=== PATIENT | female | born 1945 | race Caucasian/White ===

== ENCOUNTER 2019-08-16 12:01 | Inpatient (IN) | payer MEDICARE, MEDICAID, SELFPAY ==
[2019-08-16] VITALS (13 sets, daily range): BP systolic 77–141; BP diastolic 39–89; PULSE 106–145; RESP 20–30; TEMP 35.2–36.5; O2SAT 95–100
--- NOTE | ~2019-08-16 | XR_ITS ---
XR chest 1V portable DATE: 08/16/2019 13:05 INDICATION: Cough TECHNIQUE: Portable AP chest on 08/16/2019 at 1307 hours COMPARISON: None FINDINGS: Postoperative changes noted from cervical posterior fusion. Diffuse osteopenia. There is de xtroscoliosis and degenerative spurring of the thoracic spine. No pulmonary infiltrate or consolidation, pleural effusion or pulmonary vascular congestion or pneumo thorax is evident. IMPRESSION: No active pulmonary disease Reviewed, dictated and finalized at location A. IMPRESSION: No active pulmonary disease
--- NOTE | ~2019-08-16 | CT_ITS ---
EXAMINATION: CT abdomen pelvis wo con DATE: 08/16/2019 14:25 INDICATION: Abdominal pain. Nausea and vomiting. TECHNIQUE: Computed tomography (CT) of the abdomen and pelvis was performed without intravenous contr ast. Automated exposure control and iterative reconstruction technique were employed. Exam dose: 938 .82 mGy-cm total exam DLP. COMPARISON: None. FINDINGS: There is dependent atelectasis in both lower lobes. Cardiomegaly. Prominent coronary artery calcifications. There are calcified splenic granulomas. No apparent hepatic or splenic, pancreatic, and adrenal or re nal space-occupying mass lesion is evident on this limited noncontrast examination with motion. The g allbladder is present. No bile duct or pancreatic duct dilatation. There are some calcifications of l eft kidney which may be arterial. No ureteral calculus or hydroureteronephrosis. There is extensive calcification of the abdominal aorta and iliac arteries but no evidence of aneurys m. No intraperitoneal or retroperitoneal or pelvic mass lesion or adenopathy or ascites. There is a fairly prominent amount of fecal material and gas in the rectum and colon. No bowel obstru ction is evident. There is diffuse moderate thickening of the urinary bladder wall. No pericystic fat stranding is note d. Status post hysterectomy. Multiple surgical clips are noted in the aortocaval and. Aortic area distally, extending into the pro ximal iliac region. Status post mesh ventral abdominal wall hernia repair with some bulging right of midline. Nonspecific stranding in the subcutaneous adipose tissues of the ventral abdominal wall, right greater than left . Diffuse osteopenia. IMPRESSION: Cardiomegaly, prominent coronary artery calcified atherosclerosis Prominent amount of fecal material and gas in the rectum and colon Nonspecific thickening of the urinary bladder wall; recommend correlation with urinalysis for possibl e cystitis Reviewed, dictated and finalized at Location [facility]. Reviewed, dictated and finalized at location A. IMPRESSION: Cardiomegaly, prominent coronary artery calcified atherosclerosis Prominent amount of fecal material and gas in the rectum and colon Nonspecific thickening of the urinary bladder wall; recommend correlation with urinalysis for possible cystitis
--- NOTE | 2019-08-16 12:11 | ECG_ITS ---
Measurements Intervals [place] Rate: 125 P: [place]: 0 QRS: 34 QRSD: 88 T: 142 QT: 334 QTc: 483 Interpretive Statements ATRIAL FIBRILLATION WITH RAPID VENTRICULAR RESPONSE VENTRICULAR PREMATURE COMPLEX BORDERLINE ST-T WAVE ABNORMALITY- DIFFUSE LEADS BASELINE ARTIFACT- V6 ABNORMAL ECG Electronically Signed On 08-16-2019 16:34:42 CDT by Eliu Lockhart D.O.
--- NOTE | 2019-08-16 12:15 | ED.GENADULT ---
HPI - General Adult General Chief complaint: Dizziness Stated complaint: n/v/dizziness Time Seen by Provider: 08/16/19 12:08 Source: RN notes reviewed History of Present Illness HPI narrative: Patient presents emergency department from [facility] for nausea and vomiting. Patient has a history of previous stroke and is a phasic but is able to nod yes or no for questions. Per the [facility] staff patient began to have nausea vomiting yesterday. Patient complaining of dizziness as well as diffuse abdominal pain. No fevers or chills per the penitentiary. Patient denies any chest pain or shortness of breath Related Data Allergies Allergy/AdvReac Type Severity Reaction Status Date / Time No Known Allergies Allergy Verified 08/16/19 12:20 Review of Systems Review of Systems: Narrative: Gen.: Denies fevers or chills ENT: Denies congestion Respiratory: Denies shortness of breath or cough CV: Denies chest pain or palpitations GI: See HPI a denies burning, urgency, frequency or hematuria Musculoskeletal: Denies back pain or muscle pain Neuro: Denies headache, reports dizziness Skin: Denies rash Except as documented, all other systems reviewed and negative [facility] Past Medical History Medical History (Updated 08/16/19 @ 17:12 by Diego Aden DO) CVA (cerebral vascular accident) Social History Social History (Updated 08/16/19 @ 12:15 by Diego Aden DO) Smoking status: Never smoker Gender identity (if verbalized by the patient): Female Exam Narrative: Exam Narrative: APPEARANCE: No acute distress, nontoxic, resting in bed EYES: EOMI HEENT: Normocephalic, atraumatic, oromucosa dry RESPIRATORY: No respiratory distress Clear to auscultation bilaterally with no rhonchi wheezing or rales. CARDIOVASCULAR: Tachycardic and irregular without murmurs rubs or gallops. ABDOMINAL: Soft, nondistended, diffusely tender to palpation, no rebound or guarding Rectal: Moderate amount of reddish-brown stool that is Hemoccult positive MUSCULOSKELETAl: Moves all extremities. No clubbing, cyanosis or edema. NEURO: Awake and alert. Following commands, a phasic nods yes or no to answer questions SKIN:: Warm, dry. No rashes lesions or abrasions PSYCHIATRIC: Normal affect/mood, Course Course Emergency Course: Reviewed patient's records the patient is a DNR comfort measures only. Reviewed contact individuals. Discussed with the patient's power of spent grain dryer Padma Edward who resides in [place]. Discussed the patient's current work-up and grave status. Discussed the patient's blood pressures GI bleed. At this time she request continue DNR. We discussed central line placement and she states the patient will want no aggressive treatment outside of peripheral IV understands that this could lead to but requests no central line or pressors at this time. States the patient's other sister will be coming to the ER Patient's daughter Armando down the emergency department. Again had conversation with daughter who is present as well as the patient who does comprehend and able to nod up and down the grave situation of the patient's current illness discussed treatment options including central line placement and pressors at this time the patient does not wish to have any further escalation outside of IV fluids and antibiotics her and family do understand high risk of without more aggressive treatment. I did discuss with the patient and family whether the patient want a blood transfusion as this can be given through a peripheral IV the family and patient are in agreement with this. We did discuss the possibility of hospice but the patient would like to proceed with antibiotics and fluids at this time as well as family but again with no further escalation Patient continues to have A. fib with RVR she is on metoprolol at home. At this time I will try a dose of Lopressor 5 mg as the patient has been unable to keep down her medications and question
[2019-08-16] MEDS: SODIUM CHLORIDE 0.9% IV 1,000 ML 999 ML IV CONT ×2 (12:16→12:17)
[2019-08-16 13:27] LABS: Basophils Absolute Auto 0.1 K/mm3 (0.0-0.1); Basophils Percent Auto 0.2 % (0.2-1.2); Hematocrit 24.2 % (37.0-47.0); Hemoglobin 7.6 g/dL (12.0-15.0); Immature Granulocyte Absolute 0.38 K/mm3 (0.00-0.031); Immature Granulocyte Percent A 1.2 % (0-0.5); Lymphocytes Absolute Auto 1.58 K/mm3 (0.9-3.2); Lymphocytes Percent Auto 5.1 % (18.3-44.2); Mean Corpuscular HGB Conc 31.4 g/dl (32-36); Mean Corpuscular Hemoglobin 31.9 pg (26-34); Mean Corpuscular Volume 101.7 fl (80-100); Mean Platelet Volume 11.2 fl (7.4-10.4); Monocytes Absolute Auto 1.5 K/mm3 (0.1-0.6); Monocytes Percent Auto 4.9 % (2.6-8.5); Neutrophils Absolute Auto 27.7 K/mm3 (1.3-6.7); Neutrophils Percent Auto 88.6 % (45.5-73.1); Nucleated Red Blood Cells Absolute Auto 0.3 K/mm3 (0.0-0.012); Nucleated Red Blood Cells Perc 0.9 % (0.0-0.2); Platelet Count Result 376 k/mm3 (150-375); Red Blood Count 2.38 M/mm3 (4.2-5.4); Red Cell Distribution Width 14.2 % (11.5-14.5); White Blood Count 31.3 K/mm3 (4.5-10.0)
[2019-08-16 13:32] LABS: Add Urine Microscopic? YES; Appearance Urine Turbid (Clear); Bacteria Urine 4+ /hpf; Bilirubin Urine 1+ (Negative); Blood Urine 2+ (Negative); Color Urine Amber (Yellow); Glucose Urine UA Negative (Negative); Hyaline Casts Urine 30-49 /lpf; Ketones Urine Negative (Negative); Leukocyte Esterase Ur 3+ LEU/UL (Negative); Mucus Urine Rare /lpf; Nitrate Urine Negative (Negative); Protein Urine 1+ mg/dL (Negative); Specific Grav Ur 1.018 (1.001-1.035); Squamous Epithelial Cell Urine Occasional /hpf (Few); WBC Clumps Urine Present /HPF; WBC Urine >75 /hpf
[2019-08-16 13:38] LABS: INR 3.1; Partial Thromboplastin Time 33.8 SECONDS (22.3-36.8); Prothrombin Time 31.4 Seconds (11.1-14.7)
[2019-08-16 13:52] LABS: Alanine Aminotransferase 22 U/L (4-35); Alkaline Phosphatase 41 U/L (38-126); Aspartate Amino Transferase 54 U/L (14-36); Bilirubin,Total 0.4 mg/dL (0.2-1.3); Blood Urea Nitrogen 75 mg/dL (7-17); Calcium 8.1 mg/dL (8.4-10.2); Carbon Dioxide 11 mmol/L (22-30); Chloride 104 mmol/L (98-107); Estimated Glomerular Filt Rate 26; Glucose 143 mg/dL (65-105); Lipase 270 U/L (23-300); Potassium 4.1 mmol/L (3.4-5.0); Sodium 140 mmol/L (137-145)
[2019-08-16 13:54] LABS: Troponin I 0.084 ng/mL (0.000-0.034)
[2019-08-16 14:02] LABS: Lactic Acid Reflex 13.4 mmol/L (0.7-2.1)
[2019-08-16] MEDS: SODIUM CHLORIDE 0.9% IV 500 ML 999 ML IV CONT ×2 (14:12→15:36)
[2019-08-16] MEDS: METOPROLOL TARTRATE INJ 5 MG/5 ML VIAL IV PUSH (15:13)
[2019-08-16 16:25] LABS: Reflex Lactic Acid Yes or No Add Lactic
--- NOTE | 2019-08-16 17:37 | PC.NURSE ---
While in room with pt and daughter, Pts O2 started to drop to the 70's. This RN went to put pt on O2 and pt shook head NO.
--- NOTE | 2019-08-16 17:39 | ADMGEN ---
This patient, Kyra Bedoya, was admitted to Intensive Care Unit-1 @ 1726 08/16/19. Patient oriented to hospital policies and general routines including ID bracelet, bed and alarms, visiting hours, pain management, procedures, bathroom and other care routines, personal items, smoking policy, room service/diet, and visiting hours. Valuables list has been completed. Information on how to activate the Rapid Response Team has been discussed. Patient/Family are encouraged to report perceived risks to care and to ask questions if they do not understand what they are told or what they should do.
[2019-08-16] MEDS: SODIUM CHLORIDE 0.9% IV 1,000 ML 125 ML IV CONT (17:54)
[2019-08-16 18:51] LABS: Troponin I 0.108 ng/mL (0.000-0.034)
--- NOTE | 2019-08-16 20:12 | PM.IMHP ---
H&P: HPI History of Present Illness Chief complaint: severe sepsis,uti,gi bleeding, a fib with rvr,stacia Narrative: Kyra Bedoya is a 74 year old female who comes from [facility]. Nausea and vomiting. She has had a previous stroke and is aphasic. The patient came to the emergency room from the half-way due to nausea and vomiting. She was complaining of dizziness and abdominal pain. No fever chills. She was having some diarrhea when I was in the room with her. Her history was obtained from her records from the half-way and also I was able to communicate somewhat with asking her questions and her nodding yes or no. She is being checked for COVID since she comes from a half-way that had an outbreak. The patient's heart rate was found to be in the 140s. She has a history of atrial fibrillation and is on Eliquis. She was noted to be AFib RVR. Hemoglobin was noted to be 7.6 and she was ordered for a unit of blood. The patient has a power of workers compensation defense attorney who is Padma velez who resides in [place]. ER physician did notify the power workers compensation defense attorney who stated that the patient wants no aggressive treatment outside of the IV fluids and no central line are vasopressors. There was a relative that came to the emergency room Kailey briceno who was given all of the options. The family is agreeable to blood transfusions in IV fluids. They would like to proceed with antibiotics. As the patient was found to have a UTI. The patient is alert. However her blood pressure drops on the 80/60 at times. She was given IV fluids and then a unit of blood. The blood pressure has improved some. Her her home medications include metoprolol., IV fluids, and metoprolol IV. She was given IV bolus in the emergency room. Her UA was positive for UTI. CT of the abdomen and pelvis was read as cardiomegaly, prominent coronary artery calcification arthrosclerosis. Prominent amount of fecal material gas in the rectum and colon. Nonspecific thickening of the urinary bladder wall recommend correlation with urinalysis for possible cystitis. Date of service 08/16/2019 was noted to be 13.4. Review of Systems Review of Systems: All systems reviewed & are unremarkable except as noted in HPI and below Constitutional: Constitutional: Reports as per HPI and Reports no additional constitutional complaints Eyes: Eyes: Reports as per HPI and Reports no additional eye complaints ENT: Reports system reviewed and no additional complaints, except as documented and Reports Normal hearing present Cardiovascular: Cardiovascular: Reports no additional cardiovascular complaints Respiratory: Respiratory: Reports no additional respiratory complaints and Reports no additional respiratory complaints Gastrointestinal: Gastrointestinal: Reports as per HPI and Reports no additional gastrointestinal complaints Musculoskeletal: Musculoskeletal: Reports no additional musculoskeletal complaints Integumentary/Breasts: Skin/Breast: Reports system reviewed and no additional complaints, except as docu and Reports as per HPI Neurologic: Reports system reviewed and no additional complaints, except as documented, Reports as per HPI and Reports Normal hearing present Psychiatric: Psychiatric: Reports no additional psychiatric complaints and Reports as per HPI Endocrine: Endocrine: Reports no additional endocrine complaints Hematologic/Lymphatic: Hematologic/Lymphatic: Reports no additional hematologic/lymphatic complaints Allergic/Immunologic: Allergic/Immunologic: Reports no additional allergic/immunologic complaints [facility] Past Medical History Medical History (Updated 08/16/19 @ 20:24 by Bailee Macias NP) CAD (coronary artery disease) CVA (cerebral vascular accident) History of this leaving her aphasic Hyperlipidemia Hypertension Neoplasm of ovary Peripheral neuropathy Surgical History Surgical History (Updated 08/16/19 @ 20:24 by Bailee Macias NP) Surgical history unkno
[2019-08-16] MEDS: DIGOXIN INJ 250 MCG/ML 2 ML AMP (*BKC) IV PUSH (20:36)
[2019-08-16 21:45] LABS: Basophils Absolute Auto 0.1 K/mm3 (0.0-0.1); Basophils Percent Auto 0.3 % (0.2-1.2); Hematocrit 26.9 % (37.0-47.0); Hemoglobin 9.2 g/dL (12.0-15.0); Immature Granulocyte Absolute 0.15 K/mm3 (0.00-0.031); Immature Granulocyte Percent A 0.5 % (0-0.5); Lymphocytes Absolute Auto 1.87 K/mm3 (0.9-3.2); Lymphocytes Percent Auto 6.3 % (18.3-44.2); Mean Corpuscular HGB Conc 34.2 g/dl (32-36); Mean Corpuscular Hemoglobin 31.2 pg (26-34); Mean Corpuscular Volume 91.2 fl (80-100); Monocytes Absolute Auto 1.5 K/mm3 (0.1-0.6); Monocytes Percent Auto 5.1 % (2.6-8.5); Neutrophils Absolute Auto 25.9 K/mm3 (1.3-6.7); Neutrophils Percent Auto 87.8 % (45.5-73.1); Nucleated Red Blood Cells Absolute Auto 0.2 K/mm3 (0.0-0.012); Nucleated Red Blood Cells Perc 0.6 % (0.0-0.2); Platelet Count Result 305 k/mm3 (150-375); Red Blood Count 2.95 M/mm3 (4.2-5.4); Red Cell Distribution Width 15.8 % (11.5-14.5); White Blood Count 29.5 K/mm3 (4.5-10.0)
[2019-08-16 22:18] LABS: IFOB Positive Control Positive; Immunochemical Fecal Occult Bl Positive (N)
[2019-08-16 22:24] LABS: Lactic Acid 4.9 mmol/L (0.7-2.1)
--- NOTE | 2019-08-16 22:47 | PC.NURSE ---
Pt's POA, Emma Edward ([phone]) called for pt update. Emma states she is like a niece to the pt but is a cousin thing. Emma states that Kyra does not want any extraordinary measures taken to preserve her life. States that if lab work is necessary to treat an infection, then that is okay to do, but if it's being done for surgery or to preserve her life, then don't do it. Pt nodded and Emma agreed that pt does not want GI or cardiac consults. Emma states she wants to be comfortable. Emma states she is in [place] but can be reached at anytime for questions.
--- NOTE | 2019-08-16 23:05 | PC.NURSE ---
Notified Bailee Macias NP of conversation with Emma (POA). Troponin canceled since pt and POA do not want treatment for findings. Also informed Bailee that neither pt nor POA want GI consult for treatment of positive occult blood in stool.
[2019-08-17] VITALS (11 sets, daily range): BP systolic 86–110; BP diastolic 24–57; PULSE 84–113; RESP 16–21; TEMP 36–37.3; O2SAT 96–99
[2019-08-17] MEDS: SODIUM CHLORIDE 0.9% IV 1,000 ML 125 ML IV CONT ×3 (00:16→17:50)
--- NOTE | 2019-08-17 04:10 | PC.NURSE ---
Pt refused am labs.
[2019-08-17] MEDS: DIGOXIN INJ 250 MCG/ML 2 ML AMP (*BKC) 125 MCG IV PUSH (08:47)
--- NOTE | 2019-08-17 13:01 | PC.NURSE ---
This patient, Kyra Bedoya, was transferred to [[facility] 3m/s ] on 08/17/19 at 1200. Personal belongings sent with patient. Belongings list checked and signed with receiving [3m/s narayan]. Report given to [ Lul NOYOLA ]. Appropriate documentation sent with patient.
--- NOTE | 2019-08-17 15:30 | PM.IMPN ---
Progress Note: A&P Assessment and Plan (1) Septic shock: Code(s): A41.9 - Sepsis, unspecified organism; R65.21 - Severe sepsis with septic shock Status: Acute Assessment and Plan: The patient is having low blood pressures in AFib with RVR which is NSR now. Patient was started on Rocephin for UTI. Uc is positive. (2) Acute UTI: Code(s): N39.0 - Urinary tract infection, site not specified Status: Acute Assessment and Plan: Patient was started on Rocephin. uc is positive. (3) Hypertension: Code(s): I10 - Essential (primary) hypertension Status: Chronic Assessment and Plan: Restart oral medications (4) Hyperlipidemia: Code(s): E78.5 - Hyperlipidemia, unspecified Status: Chronic Assessment and Plan: Restart fenofibrate and atorvastatin at this time. (5) Peripheral neuropathy: Code(s): G62.9 - Polyneuropathy, unspecified Status: Chronic Assessment and Plan: This time so she has not had any of her gabapentin. (6) Elevated troponin: Code(s): R79.89 - Other specified abnormal findings of blood chemistry Status: Acute Assessment and Plan: Could be related to the sepsis. minimal elevation (7) Anemia: Code(s): D64.9 - Anemia, unspecified Status: Acute Assessment and Plan: sp one unit blood, fobt is positive (8) Acute GI bleeding: Code(s): K92.2 - Gastrointestinal hemorrhage, unspecified Status: Acute Assessment and Plan: Do not want GI involved at this time. (9) CVA (cerebral vascular accident): Code(s): I63.9 - Cerebral infarction, unspecified Status: Acute Assessment and Plan: The patient has expressive aphasia. (10) Acute renal insufficiency: Code(s): N28.9 - Disorder of kidney and ureter, unspecified Status: Acute Assessment and Plan: Patient had a history of nausea vomiting, hydrated will can advance diet . (11) Atrial fibrillation with rapid ventricular response: Code(s): I48.91 - Unspecified atrial fibrillation Status: Acute Assessment and Plan: Patient was given a dose of metoprolol IV push which then dropped her blood pressure. I gave her a dose of digoxin, pt is back on her Eliquis and ASA. (12) CAD (coronary artery disease): Code(s): I25.10 - Atherosclerotic heart disease of [place] coronary artery without angina pectoris Status: Chronic Assessment and Plan: Patient was on aspirin and Eliquis continue to hold due to fobt positive stool Subjective Date/time seen: 08/17/19 15:30 Interval history: 74 year old female who comes from [facility]. Nausea and vomiting. She has had a previous stroke and is aphasic. The patient [facility] due to [facility] and vomiting. nausea and vomiting have settled, no complaints, awaiting covid test, pt is very sleepy today, hold conversation when awoken Review of Systems Review of Systems: ROS unobtainable: Yes unobtainable due to mental status Exam Const: General: cooperative, comfortable, no acute distress, well developed, alert, awake and Physically active Nutritional Appearance: average body habitus and well nourished Orientation/consciousness: oriented to person Limitations: no limitations Resp: Effort & Inspection: normal respiratory effort Auscultation: clear to auscultation bilaterally Percussion: percussion normal Cardio: Palpation: normal PMI Rate: tachycardic Rhythm: abnormal rhythm Heart sounds: S1 normal heart sound present and S2 normal heart sound present Peripheral pulses: Peripheral pulses 2+ throughout Extrem: General: normal to inspection Right upper extremity: normal to inspection and shoulder/upper arm Left upper extremity: normal to inspection and shoulder/upper arm Right lower extremity: normal to inspection Left lower extremity: normal to inspection Objective
[2019-08-17 17:23] LABS: Basophils Absolute Auto 0.1 K/mm3 (0.0-0.1); Basophils Percent Auto 0.3 % (0.2-1.2); Hematocrit 23.6 % (37.0-47.0); Hemoglobin 7.8 g/dL (12.0-15.0); Immature Granulocyte Percent A 0.5 % (0-0.5); Lymphocytes Absolute Auto 1.45 K/mm3 (0.9-3.2); Lymphocytes Percent Auto 7.4 % (18.3-44.2); Mean Corpuscular HGB Conc 33.1 g/dl (32-36); Mean Corpuscular Hemoglobin 30.6 pg (26-34); Mean Corpuscular Volume 92.5 fl (80-100); Mean Platelet Volume 10.9 fl (7.4-10.4); Monocytes Absolute Auto 1.6 K/mm3 (0.1-0.6); Monocytes Percent Auto 7.9 % (2.6-8.5); Neutrophils Absolute Auto 16.5 K/mm3 (1.3-6.7); Neutrophils Percent Auto 83.9 % (45.5-73.1); Nucleated Red Blood Cells Absolute Auto 0.2 K/mm3 (0.0-0.012); Nucleated Red Blood Cells Perc 0.9 % (0.0-0.2); Platelet Count Result 226 k/mm3 (150-375); Red Blood Count 2.55 M/mm3 (4.2-5.4); Red Cell Distribution Width 17.4 % (11.5-14.5); White Blood Count 19.7 K/mm3 (4.5-10.0)
[2019-08-17 17:34] LABS: Alanine Aminotransferase 19 U/L (4-35); Albumin Level 2.4 g/dL (3.5-5.1); Alkaline Phosphatase 36 U/L (38-126); Aspartate Amino Transferase 50 U/L (14-36); Bilirubin,Total 0.5 mg/dL (0.2-1.3); Blood Urea Nitrogen 77 mg/dL (7-17); Calcium 7.1 mg/dL (8.4-10.2); Carbon Dioxide 27 mmol/L (22-30); Chloride 114 mmol/L (98-107); Estimated Glomerular Filt Rate 44; Glucose 164 mg/dL (65-105); Potassium 3.3 mmol/L (3.4-5.0); Sodium 143 mmol/L (137-145)
[2019-08-17] MEDS: ATORVASTATIN 10 MG TABLET PO (21:20)
[2019-08-17] MEDS: APIXABAN 5 MG TABLET PO (21:20)
[2019-08-17 23:20] LABS: Hematocrit 23.7 % (37.0-47.0); Hemoglobin 7.7 g/dL (12.0-15.0)
[2019-08-18] VITALS (7 sets, daily range): BP systolic 111–130; BP diastolic 43–51; PULSE 69–89; RESP 16–20; TEMP 36.2–36.9; O2SAT 97–100
[2019-08-18] MEDS: SODIUM CHLORIDE 0.9% IV 1,000 ML 125 ML IV CONT ×3 (01:58→20:47)
[2019-08-18] MEDS: GABAPENTIN 100 MG CAPSULE 200 MG PO ×2 (12:44→17:50)
[2019-08-18] MEDS: POTASSIUM CHLORIDE 20 MEQ TABLET.ER PO (12:44)
[2019-08-18] MEDS: METOPROLOL TARTRATE 50 MG TAB 100 MG PO ×2 (12:44→20:54)
[2019-08-18] MEDS: MULTIVITAMINS THERAPEUTIC TAB (*BKC) 1 TABLET PO (12:44)
[2019-08-18] MEDS: ASPIRIN 81 MG ENTERIC TABLET PO (12:44)
[2019-08-18] MEDS: CHOLECALCIFEROL 1,000 UNIT TABLET 1000 UNITS PO (12:44)
[2019-08-18] MEDS: APIXABAN 5 MG TABLET PO (12:44)
[2019-08-18] MEDS: FENOFIBRATE NANOCRYSTALLIZED 145 MG TABLET PO (12:44)
[2019-08-18] MEDS: FUROSEMIDE 40 MG TABLET PO ×2 (12:44→17:51)
[2019-08-18 16:10] LABS: SARS-CoV-2 RNA PCR Negative
--- NOTE | 2019-08-18 17:36 | PM.IMPN ---
Progress Note: A&P Assessment and Plan (1) Septic shock: Code(s): A41.9 - Sepsis, unspecified organism; R65.21 - Severe sepsis with septic shock Status: Acute Assessment and Plan: The patient is having low blood pressures in AFib with RVR which is NSR now. Patient was started on Rocephin for UTI. Uc is positive. pt can have purred diet, pt can come out of isolation if covid is negative (2) Acute UTI: Code(s): N39.0 - Urinary tract infection, site not specified Status: Acute Assessment and Plan: Patient was started on Rocephin. uc is positive. (3) Hypertension: Code(s): I10 - Essential (primary) hypertension Status: Chronic Assessment and Plan: Restart oral medications (4) Hyperlipidemia: Code(s): E78.5 - Hyperlipidemia, unspecified Status: Chronic Assessment and Plan: Restart fenofibrate and atorvastatin at this time. (5) Peripheral neuropathy: Code(s): G62.9 - Polyneuropathy, unspecified Status: Chronic Assessment and Plan: This time so she has not had any of her gabapentin. (6) Elevated troponin: Code(s): R79.89 - Other specified abnormal findings of blood chemistry Status: Acute Assessment and Plan: Could be related to the sepsis. minimal elevation (7) Anemia: Code(s): D64.9 - Anemia, unspecified Status: Acute Assessment and Plan: sp one unit blood, fobt is positive (8) Acute GI bleeding: Code(s): K92.2 - Gastrointestinal hemorrhage, unspecified Status: Acute Assessment and Plan: Do not want GI involved at this time. (9) CVA (cerebral vascular accident): Code(s): I63.9 - Cerebral infarction, unspecified Status: Acute Assessment and Plan: The patient has expressive aphasia. (10) Acute renal insufficiency: Code(s): N28.9 - Disorder of kidney and ureter, unspecified Status: Acute Assessment and Plan: Patient had a history of nausea vomiting, hydrated will can advance diet . (11) Atrial fibrillation with rapid ventricular response: Code(s): I48.91 - Unspecified atrial fibrillation Status: Acute Assessment and Plan: Patient was given a dose of metoprolol IV push which then dropped her blood pressure. I gave her a dose of digoxin, hold asa and eliquis for now FOBT is positive (12) CAD (coronary artery disease): Code(s): I25.10 - Atherosclerotic heart disease of [place] coronary artery without angina pectoris Status: Chronic Assessment and Plan: Patient was on aspirin and Eliquis continue to hold due to fobt positive stool Subjective Date/time seen: 08/18/19 17:36 Interval history: 74 year old female who comes from [facility]. Nausea and vomiting. She has had a previous stroke and is aphasic. The patient came to the emergency room from the custodial due to nausea and vomiting. nausea and vomiting have settled, no complaints, awaiting covid test, pt is a pleasant lady. Likely here for UTI Review of Systems Review of Systems: All systems reviewed & are unremarkable except as noted in HPI and below Exam Const: General: alert and other (elderly pleasant lady ) Nutritional Appearance: average body habitus Psych: Appearance: grossly normal Mental Status: mental status grossly normal Speech and movement: Normal speech and movement present Affect: normal affect Attitude: cooperative Thought process: Normal thought process present Insight: Fair insight present (Psych) Judgement: Fair judgement present (Psych) Objective Data Vital Signs Vital Signs: Vital Signs - 24 hr 08/17/19 17:42 08/17/19 22:00 08/17/19 22:19 Temperature 37.3 C 36.4 C Pulse Rate 92 92 92 Respiratory Rate 16 16 Blood Pressure 86/24 L 106/50 L Pulse Oximetry 96 99 08/18/19 02:00 08/18/19 07:05 08/18/19 10:00 Temperature 36.2 C L 36.9 C 36.9 C Pulse Rate 76 89 86 Respir
--- NOTE | 2019-08-18 17:40 | PC.NURSE ---
Called and left Dr. Cornejo a voicemail that patients COVID test came back negative.
[2019-08-18] MEDS: ATORVASTATIN 10 MG TABLET PO (20:54)
[2019-08-19] VITALS (8 sets, daily range): BP systolic 95–127; BP diastolic 42–72; PULSE 72–89; RESP 16–18; TEMP 36.2–36.8; O2SAT 96–100
[2019-08-19] MEDS: SODIUM CHLORIDE 0.9% IV 1,000 ML 125 ML IV CONT ×2 (05:56→21:40)
[2019-08-19 06:19] LABS: Hematocrit 23.7 % (37.0-47.0); Hemoglobin 7.6 g/dL (12.0-15.0); Mean Corpuscular HGB Conc 32.1 g/dl (32-36); Mean Corpuscular Hemoglobin 31.1 pg (26-34); Mean Corpuscular Volume 97.1 fl (80-100); Mean Platelet Volume 10.6 fl (7.4-10.4); Platelet Count Result 190 k/mm3 (150-375); Red Blood Count 2.44 M/mm3 (4.2-5.4); Red Cell Distribution Width 18.6 % (11.5-14.5); White Blood Count 11.7 K/mm3 (4.5-10.0)
[2019-08-19 06:32] LABS: Blood Urea Nitrogen 36 mg/dL (7-17); Calcium 7.6 mg/dL (8.4-10.2); Carbon Dioxide 31 mmol/L (22-30); Chloride 115 mmol/L (98-107); Estimated Glomerular Filt Rate > 60; Glucose 111 mg/dL (65-105); Potassium 2.4 mmol/L (3.4-5.0); Sodium 148 mmol/L (137-145)
[2019-08-19] MEDS: METOPROLOL TARTRATE 50 MG TAB 100 MG PO ×2 (08:34→21:40)
[2019-08-19] MEDS: POTASSIUM CHLORIDE 20 MEQ TABLET.ER PO (08:34)
[2019-08-19] MEDS: FUROSEMIDE 40 MG TABLET PO ×2 (08:36→17:30)
[2019-08-19] MEDS: CHOLECALCIFEROL 1,000 UNIT TABLET 1000 UNITS PO (08:36)
[2019-08-19] MEDS: MULTIVITAMINS THERAPEUTIC TAB (*BKC) 1 TABLET PO (08:36)
[2019-08-19] MEDS: GABAPENTIN 100 MG CAPSULE 200 MG PO ×3 (08:37→17:29)
[2019-08-19] MEDS: FENOFIBRATE NANOCRYSTALLIZED 145 MG TABLET PO (08:37)
[2019-08-19 11:54] LABS: Blood Urea Nitrogen 32 mg/dL (7-17); Calcium 7.5 mg/dL (8.4-10.2); Carbon Dioxide 30 mmol/L (22-30); Chloride 113 mmol/L (98-107); Estimated Glomerular Filt Rate > 60; Glucose 179 mg/dL (65-105); Magnesium 1.8 mg/dL (1.6-2.3); Potassium 2.9 mmol/L (3.4-5.0); Sodium 144 mmol/L (137-145)
[2019-08-19] MEDS: POTASSIUM CHLORIDE 20 MEQ TABLET 40 MEQ PO (13:30)
--- NOTE | 2019-08-19 14:47 | PC.NURSE ---
During my morning assessment, I noted pt was aphasic and unable to communicate with me her A/O status. When I questioned her if her name was Ira, she shook her head no. When I asked her if her name was Kyra, she nodded yes. I continued in this manner for her , her location, and the year. I did not ask month or date. Pt has been able to verbally say yes to questions occasionally. Have been using pen and paper to address her needs. RS
--- NOTE | 2019-08-19 15:19 | PC.NURSE ---
Pt refusing breakfast and lunch. When I questioned her what she would like, she wrote ice cream. Called Dr. Simon and asked for Ensure Thrive ice cream to encourage nutritional intake. Okay to put in dietary supplements with meals for ice cream.
--- NOTE | 2019-08-19 16:21 | PM.IMPN ---
Progress Note: A&P Assessment and Plan (1) Septic shock: Code(s): A41.9 - Sepsis, unspecified organism; R65.21 - Severe sepsis with septic shock Status: Acute Assessment and Plan: The patient is having low blood pressures in AFib with RVR which is NSR now. Patient was started on Rocephin for UTI. Uc is positive. pt can have purred diet, pt can come out of isolation if covid is negative 74 year old female who comes from [facility]. Nausea and vomiting. She has had a previous stroke and is aphasic. The patient came to the emergency room from the longterm due to nausea and vomiting. nausea and vomiting have settled, no complaints, awaiting covid test whichg is negative, patient is being treated for UTI, patient is hemoglobing is dropping and seems patient has GI bleed, I spoke with Padma patient POA [phone] she has agreed to consult GI for further recommendation. (2) Acute UTI: Code(s): N39.0 - Urinary tract infection, site not specified Status: Acute Assessment and Plan: Patient was started on Rocephin. uc is positive. (3) Hypertension: Code(s): I10 - Essential (primary) hypertension Status: Chronic Assessment and Plan: Restart oral medications (4) Hyperlipidemia: Code(s): E78.5 - Hyperlipidemia, unspecified Status: Chronic Assessment and Plan: Restart fenofibrate and atorvastatin at this time. (5) Peripheral neuropathy: Code(s): G62.9 - Polyneuropathy, unspecified Status: Chronic Assessment and Plan: This time so she has not had any of her gabapentin. (6) Elevated troponin: Code(s): R79.89 - Other specified abnormal findings of blood chemistry Status: Acute Assessment and Plan: Could be related to the sepsis. minimal elevation (7) Anemia: Code(s): D64.9 - Anemia, unspecified Status: Acute Assessment and Plan: sp one unit blood, fobt is positive will consult GI for further recommendation (8) Acute GI bleeding: Code(s): K92.2 - Gastrointestinal hemorrhage, unspecified Status: Acute Assessment and Plan: Do not want GI involved at this time. plan is above. (9) CVA (cerebral vascular accident): Code(s): I63.9 - Cerebral infarction, unspecified Status: Acute Assessment and Plan: The patient has expressive aphasia. (10) Acute renal insufficiency: Code(s): N28.9 - Disorder of kidney and ureter, unspecified Status: Acute Assessment and Plan: Patient had a history of nausea vomiting, hydrated will can advance diet . (11) Atrial fibrillation with rapid ventricular response: Code(s): I48.91 - Unspecified atrial fibrillation Status: Acute Assessment and Plan: Patient was given a dose of metoprolol IV push which then dropped her blood pressure. I gave her a dose of digoxin, hold asa and eliquis for now FOBT is positive (12) CAD (coronary artery disease): Code(s): I25.10 - Atherosclerotic heart disease of [place] coronary artery without angina pectoris Status: Chronic Assessment and Plan: Patient was on aspirin and Eliquis continue to hold due to fobt positive stool Subjective Date/time seen: 08/19/19 16:21 Interval history: 74 year old female who comes from [facility]. Nausea and vomiting. She has had a previous stroke and is aphasic. The patient came to the emergency room from the longterm due to nausea and vomiting. nausea and vomiting have settled, no complaints, awaiting covid test whichg is negative, patient is being treated for UTI, patient is hemoglobing is dropping and seems patient has GI bleed, I spoke with Padma patient POA [phone] she has agreed to consult GI for further recommendation. Review of Systems Review of Systems: ROS unobtainable: Yes unobtainable due to medical condition Exam Const: General: comfortable and no acut
[2019-08-19 17:04] LABS: Blood Urea Nitrogen 28 mg/dL (7-17); Calcium 7.3 mg/dL (8.4-10.2); Carbon Dioxide 28 mmol/L (22-30); Chloride 110 mmol/L (98-107); Estimated Glomerular Filt Rate > 60; Glucose 152 mg/dL (65-105); Potassium 3.1 mmol/L (3.4-5.0); Sodium 144 mmol/L (137-145)
--- NOTE | 2019-08-19 19:25 | PC.NURSE ---
at 1715, pt family, Joy, called and asked additional questions about the GI consult that she originally had said yes to. After realizing the level of care and interventions this would require, pt family stated pt would not want this and declined the consult. She stated she would like her to go hospice. Care coordination had already left. Made [facility] aware. Will initiate forward with care coordination tomorrow. When family discussed this with pt, pt adamantly shook her head no to any interventions. Family said this means that we will let God decide when you will go home. Pt shook her head yes.
[2019-08-19] MEDS: ATORVASTATIN 10 MG TABLET PO (21:40)
--- NOTE | 2019-08-19 22:00 | PC.NURSE ---
Alert and oriented (yes/no questions asked and answered/also patient is able to write). Explained mclean catheter insertion, risks/benefits. Patient has refused mclean catheter at this time.
[2019-08-20] VITALS (10 sets, daily range): BP systolic 90–125; BP diastolic 29–50; PULSE 74–96; RESP 18–20; TEMP 36.4–37.2; O2SAT 97–99
--- NOTE | 2019-08-20 03:18 | PC.NURSE ---
notified of patient's low blood pressure and general condition. No new orders at this time. Sleeping quietly in bed without distress noted. No evidence of pain noted at this time. Monitoring closely.
[2019-08-20] MEDS: SODIUM CHLORIDE 0.9% IV 1,000 ML 125 ML IV CONT (04:48)
[2019-08-20 05:54] LABS: Hematocrit 21.5 % (37.0-47.0); Mean Corpuscular HGB Conc 31.6 g/dl (32-36); Mean Corpuscular Hemoglobin 30.8 pg (26-34); Mean Corpuscular Volume 97.3 fl (80-100); Mean Platelet Volume 10.2 fl (7.4-10.4); Platelet Count Result 147 k/mm3 (150-375); Red Blood Count 2.21 M/mm3 (4.2-5.4); Red Cell Distribution Width 18.6 % (11.5-14.5); White Blood Count 8.2 K/mm3 (4.5-10.0)
[2019-08-20 05:57] LABS: Hemoglobin 6.8 g/dL (12.0-15.0)
[2019-08-20 06:06] LABS: Blood Urea Nitrogen 21 mg/dL (7-17); Calcium 7.2 mg/dL (8.4-10.2); Carbon Dioxide 29 mmol/L (22-30); Chloride 112 mmol/L (98-107); Estimated Glomerular Filt Rate > 60; Glucose 101 mg/dL (65-105); Potassium 2.9 mmol/L (3.4-5.0); Sodium 143 mmol/L (137-145)
[2019-08-20] MEDS: MULTIVITAMINS THERAPEUTIC TAB (*BKC) 1 TABLET PO (08:21)
[2019-08-20] MEDS: POTASSIUM CHLORIDE 20 MEQ TABLET.ER PO (08:21)
[2019-08-20] MEDS: FENOFIBRATE NANOCRYSTALLIZED 145 MG TABLET PO (08:21)
[2019-08-20] MEDS: METOPROLOL TARTRATE 50 MG TAB 100 MG PO ×2 (08:21→20:40)
[2019-08-20] MEDS: FUROSEMIDE 40 MG TABLET PO (08:23)
[2019-08-20] MEDS: GABAPENTIN 100 MG CAPSULE 200 MG PO ×2 (08:23→18:19)
[2019-08-20] MEDS: CHOLECALCIFEROL 1,000 UNIT TABLET 1000 UNITS PO (08:23)
--- NOTE | 2019-08-20 16:41 | PM.IMPN ---
Progress Note: A&P Assessment and Plan (1) Septic shock: Code(s): A41.9 - Sepsis, unspecified organism; R65.21 - Severe sepsis with septic shock Status: Acute Assessment and Plan: The patient is having low blood pressures in AFib with RVR which is NSR now. Patient was started on Rocephin for UTI. Uc is positive. pt can have purred diet, pt can come out of isolation if covid is negative 74 year old female who comes from [facility]. Nausea and vomiting. She has had a previous stroke and is aphasic. The patient came to the emergency room from the intermediate due to nausea and vomiting. nausea and vomiting have settled, no complaints, awaiting covid test whichg is negative, patient is being treated for UTI, patient is hemoglobing is dropping and seems patient has GI bleed, I spoke with Padma patient POA [phone] she had agreed to consult GI, however later patient and her POA decided they did not want to see the GI, decided going to hospice I spoke with the patient again today and she is agreeable with the plan, patient be seen by hospice team, needs a COVID test prior to discharge which has been ordered. Patient refused potassium supple and blood transfusion (2) Acute UTI: Code(s): N39.0 - Urinary tract infection, site not specified Status: Acute Assessment and Plan: Patient was started on Rocephin. uc is positive. (3) Hypertension: Code(s): I10 - Essential (primary) hypertension Status: Chronic Assessment and Plan: Restart oral medications (4) Hyperlipidemia: Code(s): E78.5 - Hyperlipidemia, unspecified Status: Chronic Assessment and Plan: Restart fenofibrate and atorvastatin at this time. (5) Peripheral neuropathy: Code(s): G62.9 - Polyneuropathy, unspecified Status: Chronic Assessment and Plan: This time so she has not had any of her gabapentin. (6) Elevated troponin: Code(s): R79.89 - Other specified abnormal findings of blood chemistry Status: Acute Assessment and Plan: Could be related to the sepsis. minimal elevation (7) Anemia: Code(s): D64.9 - Anemia, unspecified Status: Acute Assessment and Plan: sp one unit blood, fobt is positive will consult GI for further recommendation (8) Acute GI bleeding: Code(s): K92.2 - Gastrointestinal hemorrhage, unspecified Status: Acute Assessment and Plan: Do not want GI involved at this time. plan is above. (9) CVA (cerebral vascular accident): Code(s): I63.9 - Cerebral infarction, unspecified Status: Acute Assessment and Plan: The patient has expressive aphasia. (10) Acute renal insufficiency: Code(s): N28.9 - Disorder of kidney and ureter, unspecified Status: Acute Assessment and Plan: Patient had a history of nausea vomiting, hydrated will can advance diet . (11) Atrial fibrillation with rapid ventricular response: Code(s): I48.91 - Unspecified atrial fibrillation Status: Acute Assessment and Plan: Patient was given a dose of metoprolol IV push which then dropped her blood pressure. I gave her a dose of digoxin, hold asa and eliquis for now FOBT is positive (12) CAD (coronary artery disease): Code(s): I25.10 - Atherosclerotic heart disease of [place] coronary artery without angina pectoris Status: Chronic Assessment and Plan: Patient was on aspirin and Eliquis continue to hold due to fobt positive stool Subjective Date/time seen: 08/20/19 16:41 Interval history: 74 year old female who comes from [facility]. Nausea and vomiting. She has had a previous stroke and is aphasic. The patient came to the emergency room from the intermediate due to nausea and vomiting. nausea and vomiting have settled, no complaints, awaiting covid test whichg is negative, patient is being treated for UTI, patient is hemoglobing is william
[2019-08-20] MEDS: ATORVASTATIN 10 MG TABLET PO (20:40)
[2019-08-21 02:00] VITALS: BP 106/46; PULSE 78; RESP 18; TEMP 36.4; O2SAT 97
[2019-08-21 06:00] VITALS: BP 111/43; PULSE 70; RESP 18; TEMP 36.2; O2SAT 97
[2019-08-21 06:07] LABS: Hematocrit 22.8 % (37.0-47.0); Mean Corpuscular HGB Conc 30.7 g/dl (32-36); Mean Corpuscular Hemoglobin 29.8 pg (26-34); Mean Platelet Volume 10.3 fl (7.4-10.4); Platelet Count Result 170 k/mm3 (150-375); Red Blood Count 2.35 M/mm3 (4.2-5.4); Red Cell Distribution Width 18.9 % (11.5-14.5); White Blood Count 9.3 K/mm3 (4.5-10.0)
[2019-08-21 06:32] LABS: Blood Urea Nitrogen 15 mg/dL (7-17); Calcium 7.8 mg/dL (8.4-10.2); Carbon Dioxide 29 mmol/L (22-30); Chloride 109 mmol/L (98-107); Estimated Glomerular Filt Rate > 60; Glucose 122 mg/dL (65-105); Sodium 140 mmol/L (137-145)
[2019-08-21] MEDS: FENOFIBRATE NANOCRYSTALLIZED 145 MG TABLET PO (09:06)
[2019-08-21] MEDS: POTASSIUM CHLORIDE 20 MEQ TABLET.ER PO (09:06)
[2019-08-21] MEDS: MULTIVITAMINS THERAPEUTIC TAB (*BKC) 1 TABLET PO (09:06)
[2019-08-21] MEDS: GABAPENTIN 100 MG CAPSULE 200 MG PO ×3 (09:06→17:40)
[2019-08-21] MEDS: METOPROLOL TARTRATE 50 MG TAB 100 MG PO (09:06)
[2019-08-21] MEDS: CHOLECALCIFEROL 1,000 UNIT TABLET 1000 UNITS PO (09:07)
[2019-08-21 10:15] VITALS: BP 114/48; PULSE 110; RESP 18; TEMP 36.4; O2SAT 100
--- NOTE | 2019-08-21 10:21 | P.CDI_ITS ---
CDI Query Clarification Request - On arrival creatinine 1.9 and GRF 44. 5 creatinine 0.60 and GRF >60. - Acute renal insufficiency has been documented. - The code for renal insufficiency translates to low severity with no implication of risk to the patient. Please clarify if a more specific diagnosis may be appropriate for this patient. * Acute renal failure * Acute on chronic renal failure * Other * Unable to determine <Christy Chao RN - Last Filed: 08/21/19 10:28>
[2019-08-21 13:03] LABS: SARS-CoV-2 RNA PCR Negative
--- NOTE | 2019-08-21 13:37 | PM.DS ---
DS: Admitting Diagnosis Admitting Diagnosis Admitting Diagnosis: Sepsis, unspecified organism DS: Discharge Diagnosis Discharge Diagnosis (1) Septic shock: Code(s): A41.9 - Sepsis, unspecified organism; R65.21 - Severe sepsis with septic shock Status: Acute Assessment and Plan: The patient is having low blood pressures in AFib with RVR which is NSR now. Patient was started on Rocephin for UTI. Uc is positive. pt can have purred diet, pt can come out of isolation if covid is negative 74 year old female who comes from [facility]. Nausea and vomiting. She has had a previous stroke and is aphasic. [facility] and [facility]. nausea and vomiting have settled, no complaints, awaiting covid test whichg is negative, patient is being treated for UTI, patient is hemoglobing is dropping and seems patient has GI bleed, I spoke with Padma patient POA [phone] she had agreed to consult GI, however later patient and her POA decided they did not want to see the GI, decided going to hospice I spoke with the patient again today and she is agreeable with the plan, patient be seen by hospice team, needs a COVID test prior to discharge which has been ordered. Patient refused potassium supple and blood transfusion (2) Acute UTI: Code(s): N39.0 - Urinary tract infection, site not specified Status: Acute Assessment and Plan: Patient was started on Rocephin. uc is positive. (3) Hypertension: Code(s): I10 - Essential (primary) hypertension Status: Chronic Assessment and Plan: Restart oral medications (4) Hyperlipidemia: Code(s): E78.5 - Hyperlipidemia, unspecified Status: Chronic Assessment and Plan: Restart fenofibrate and atorvastatin at this time. (5) Peripheral neuropathy: Code(s): G62.9 - Polyneuropathy, unspecified Status: Chronic Assessment and Plan: This time so she has not had any of her gabapentin. (6) Elevated troponin: Code(s): R79.89 - Other specified abnormal findings of blood chemistry Status: Acute Assessment and Plan: Could be related to the sepsis. minimal elevation (7) Anemia: Code(s): D64.9 - Anemia, unspecified Status: Acute Assessment and Plan: sp one unit blood, fobt is positive will consult GI for further recommendation (8) Acute GI bleeding: Code(s): K92.2 - Gastrointestinal hemorrhage, unspecified Status: Acute Assessment and Plan: Do not want GI involved at this time. plan is above. (9) CVA (cerebral vascular accident): Code(s): I63.9 - Cerebral infarction, unspecified Status: Acute Assessment and Plan: The patient has expressive aphasia. (10) Acute renal insufficiency: Code(s): N28.9 - Disorder of kidney and ureter, unspecified Status: Acute Assessment and Plan: Patient had a history of nausea vomiting, hydrated will can advance diet . (11) Atrial fibrillation with rapid ventricular response: Code(s): I48.91 - Unspecified atrial fibrillation Status: Acute Assessment and Plan: Patient was given a dose of metoprolol IV push which then dropped her blood pressure. I gave her a dose of digoxin, hold asa and eliquis for now FOBT is positive (12) CAD (coronary artery disease): Code(s): I25.10 - Atherosclerotic heart disease of [place] coronary artery without angina pectoris Status: Chronic Assessment and Plan: Patient was on aspirin and Eliquis continue to hold due to fobt positive stool DS: Summary Hospital Course Reason for hospitalization: Kyra Bedoya is a 74 year old female who comes from [facility]. Nausea and vomiting. She has had a previous stroke and is aphasic. [facility] and [facility]. She was complaining of dizziness an
[2019-08-21 14:14] VITALS: BP 116/45; PULSE 86; RESP 20; TEMP 36.7; O2SAT 100
[2019-08-21 17:54] VITALS: BP 115/53; PULSE 83; RESP 18; TEMP 36.3; O2SAT 100
--- NOTE | 2019-08-21 18:37 | PC.NURSE ---
Pt has been discharged from facility. Pt's IV removed, report called to receiving facility, and given to EMS. Hospice nurse has been notified of pt's discharge, and will follow up with pt once she gets back to her facility. Pt was discharge with fecal drainage tube in place, per Dr. Simon, and the receiving facility was accepting of that. Fecal drainage bag changed and pt cleaned before discharge back to her nursing facility.
== END 2019-08-21 18:44 | disposition hospice, home (50) | DRG 871 ==
LOC: ANHED 16:03 → ANHICU 17:12 → ANH3MEDSUR 08-18 05:26 → ANHICU 08-25 12:35
PROVIDERS: Family Medicine; Nurse Practitioner; Admitting Provider Internal Medicine; Emergency Provider Emergency Medicine; Visit Provider Family Medicine
DX: A41.9 Sepsis, unspecified organism (principal); R65.21 Severe sepsis with septic shock; N39.0 Urinary tract infection, site not specified; K92.2 Gastrointestinal hemorrhage, unspecified; Z20.828 Contact with and (suspected) exposure to other viral communicable diseases; I25.10 Atherosclerotic heart disease of native coronary artery without angina pectoris; I10 Essential (primary) hypertension; D64.9 Anemia, unspecified; N28.9 Disorder of kidney and ureter, unspecified; I48.91 Unspecified atrial fibrillation; E78.5 Hyperlipidemia, unspecified; G62.9 Polyneuropathy, unspecified; R79.89 Other specified abnormal findings of blood chemistry; Z66 Do not resuscitate; I69.320 Aphasia following cerebral infarction; Z79.01 Long term (current) use of anticoagulants
CPT/HCPCS: 36415; 36430; 71045; 74176; 80048; 80053; 81001; 82274; 83605; 83690; 83735; 84484; 85014; 85018; 85025; 85027; 85610; 85730; 86850; 86900; 86901; 86923; 87040; 87077; 87086; 87088; 87186; 87635; 93005; 96361; 96365; 96375; 99291; A9270; C9803; J0696; J1160; J3480; J7030; J7040; P9016; U0003

== ENCOUNTER 2020-04-27 09:56 | Inpatient (IN) | payer MEDICARE, MEDICAID, SELFPAY ==
[2020-04-27] VITALS (23 sets, daily range): BP systolic 117–164; BP diastolic 42–69; PULSE 68–99; RESP 14–20; TEMP 36.1–36.6; O2SAT 93–99; BMI 28.4
--- NOTE | ~2020-04-27 | XR_ITS ---
EXAMINATION: XR chest 1V DATE: 04/27/2020 10:37 INDICATION: Altered mental status. TECHNIQUE: A single frontal view of the chest was obtained. COMPARISON: Chest single view 08/16/2019, CT abdomen and pelvis 08/16/2019 FINDINGS: A calcified left lung nodule and calcified left hilar and mediastinal lymph nodes are consi stent with old granulomatous disease. There is mild atelectasis in left lower lung zone. No pleural e ffusion or pneumothorax. Cardiomegaly is noted. There are changes of posterior fusion procedure in ce rvical spine. IMPRESSION: 1. Mild atelectasis in left lower lung zone. 2. Cardiomegaly. Reviewed, dictated and finalized at location A. ICULTURALIST
--- NOTE | ~2020-04-27 | CT_ITS ---
EXAMINATION: CT brain wo [facility] EXAM DATE: 04/27/2020 10:26 INDICATION: Altered mental status. TECHNIQUE: Spiral CT of the head was performed without contrast. Axial, coronal and sagittal images were reviewed. The dose-length product (DLP) for this examination was 605.33 mGy-cm. The exposure w as tailored according to patient size, and iterative reconstruction (ASIR) was used as additional dos e reduction technique. There is no prior study for comparison. FINDINGS: There is an old moderate-sized right parietal lobe infarction. There are old moderate-sized bilateral symmetric cerebellar infarctions. There is moderate cerebral atrophy and mild microangiopa thy. There is no acute intraparenchymal hemorrhage. No evidence of intraparenchymal brain mass lesio n. No evidence of acute infarction. There is no mass effect or midline shift. The ventricles are n ormal in size. There are no extra-axial collections. There are no acute calvarial fractures. The or bits are unremarkable. Soft tissue is unremarkable. The visualized sinuses and mastoid air cells ar e well aerated. Intracranial carotid arteriosclerosis. IMPRESSION: 1. No acute intracranial findings. 2. Old infarctions. 3. Atrophy and microangiopathy. Reviewed, dictated and finalized at location B. [facility]
--- NOTE | 2020-04-27 10:12 | ECG_ITS ---
Measurements Intervals [place] Rate: 84 P: 50 IL: 194 QRS: 56 QRSD: 76 T: 88 QT: 372 QTc: 441 Interpretive Statements SINUS RHYTHM ATRIAL PREMATURE COMPLEXES NONSPECIFIC ST & T-WAVE ABNORMALITY- HIGH LATERAL LEADS BASELINE ARTIFACT- I, II, III, AVR, AVL, AVF BORDERLINE ECG Electronically Signed On 04-27-2020 11:11:27 [employer] ASSIST[employer] by Eliu Lockhart D.O.
[2020-04-27 11:02] LABS: Basophils Absolute Auto 0.1 K/mm3 (0.0-0.1); Basophils Percent Auto 0.9 % (0.2-1.2); Eosinophils Absolute Auto 0.5 K/mm3 (0-0.3); Immature Granulocyte Absolute 0.05 K/mm3 (0.00-0.031); Immature Granulocyte Percent A 0.5 % (0-0.5); Lymphocytes Absolute Auto 1.35 K/mm3 (0.9-3.2); Lymphocytes Percent Auto 13.1 % (18.3-44.2); Mean Corpuscular HGB Conc 32.4 g/dl (32-36); Mean Corpuscular Volume 92.5 fl (80-100); Mean Platelet Volume 10.3 fl (7.4-10.4); Monocytes Absolute Auto 0.7 K/mm3 (0.1-0.6); Monocytes Percent Auto 6.8 % (2.6-8.5); Neutrophils Absolute Auto 7.6 K/mm3 (1.3-6.7); Neutrophils Percent Auto 73.7 % (45.5-73.1); Platelet Count Result 245 k/mm3 (150-375); White Blood Count 10.3 K/mm3 (4.5-10.0)
[2020-04-27 11:10] LABS: Add Urine Microscopic? YES; Appearance Urine Cloudy (Clear); Bacteria Urine Trace /hpf; Bilirubin Urine Negative (Negative); Blood Urine Negative (Negative); Color Urine Yellow (Yellow); Glucose Urine UA 1+ mg/dL (Negative); Ketones Urine Negative (Negative); Leukocyte Esterase Ur 3+ LEU/UL (Negative); Mucus Urine Rare /lpf; Nitrate Urine Positive (Negative); Protein Urine 1+ mg/dL (Negative); Specific Grav Ur 1.013 (1.001-1.035); Squamous Epithelial Cell Urine Occasional /hpf (Few); Urobilinogen Urine Negative mg/dL (<2.0); WBC Clumps Urine Present /HPF; WBC Urine >75 /hpf
[2020-04-27 11:21] LABS: INR 1.1; Prothrombin Time 14.9 Seconds (11.1-14.7)
[2020-04-27 11:23] LABS: Partial Thromboplastin Time 32.9 SECONDS (22.3-36.8)
[2020-04-27 11:26] LABS: Troponin I 0.018 ng/mL (0.000-0.034)
[2020-04-27 11:47] LABS: Alanine Aminotransferase 12 U/L (4-35); Albumin Level 3.6 g/dL (3.5-5.1); Alkaline Phosphatase 75 U/L (38-126); Anion Gap 7 mmol/L (8-16); Aspartate Amino Transferase 31 U/L (14-36); Bilirubin,Total 0.5 mg/dL (0.2-1.3); Blood Urea Nitrogen 24 mg/dL (7-17); Calcium 9.1 mg/dL (8.4-10.2); Carbon Dioxide 32 mmol/L (22-30); Chloride 100 mmol/L (98-107); Estimated CRCL calculation 39 ml/min; Estimated Glomerular Filt Rate 54; Glucose 210 mg/dL (65-105); Potassium 3.5 mmol/L (3.4-5.0); Sodium 139 mmol/L (137-145)
--- NOTE | 2020-04-27 12:32 | ED.GENADULT ---
HPI - General Adult General Chief complaint: Neuro Symptoms/Deficit Stated complaint: Altered Time Seen by Provider: 04/27/20 10:11 Source: EMS Mode of arrival: EMS Limitations: altered mental status, physical limitation and clinical condition History of Present Illness HPI narrative: Patient is a 75-year-old bedbound nonverbal patient who is brought in by EMS speak with half-way staff the [facility] states that the patient has altered mental status. They stated the patient normally nods yes or no response but had a few minutes of not responding earlier today so they sent her for evaluation. Related Data Home Medications Medication Instructions Recorded Confirmed acetaminophen 650 mg PO Q4H PRN 04/27/20 04/27/20 diphenhydramine HCl 25 mg PO TID 04/27/20 04/27/20 fenofibrate nanocrystallized 145 mg PO DAILY 04/27/20 04/27/20 fluticasone propionate 2 spray INTRANASAL DAILY 04/27/20 04/27/20 furosemide [Lasix] 40 mg PO BID 04/27/20 04/27/20 gabapentin 200 mg PO TID 04/27/20 04/27/20 hydroxyzine pamoate 25 mg PO BID 04/27/20 04/27/20 lorazepam [Ativan] 0.5 mg PO Q4-6H PRN 04/27/20 04/27/20 metoprolol tartrate 100 mg PO Q12H 04/27/20 04/27/20 morphine 1 mg PO Q4H PRN 04/27/20 04/27/20 Allergies Allergy/AdvReac Type Severity Reaction Status Date / Time No Known Allergies Allergy Verified 04/27/20 10:11 Review of Systems Review of Systems: Narrative: CONSTITUTIONAL: Denies fever, chills, or sweats. EYES: Denies visual changes, redness, or discharge. ENT: Denies rhinorrhea, congestion, sore throat, or otalgia. CARDIOVASCULAR: Denies chest pain, palpitations, or edema. RESPIRATORY: Denies cough or dyspnea. GASTROINTESTINAL: Denies abdominal pain, nausea, vomiting, or diarrhea. GENITOURINARY: Denies dysuria or hematuria. SKIN: Denies rash or itching. MUSCULOSKELETAL: Denies back pain, joint pain, or myalgia. NEUROLOGIC: Reports decreased mental status denies headache, numbness, dizziness, or weakness. PSYCHIATRIC: Denies anxiety or depression. PMFSH Past Medical History Medical History (Updated 04/27/20 @ 16:52 by Maryanne Meléndez PA-C) CAD (coronary artery disease) CVA (cerebral vascular accident) History of this leaving her aphasic Hyperlipidemia Hypertension Neoplasm of ovary Peripheral neuropathy Surgical History Surgical History (Updated 08/16/19 @ 20:24 by Bailee Macias NP) Surgical history unknown Family History Family History Unknown Family history unknown Patient has aphasia and was not able to communicate family history Other Unknown family medical history Social History Social History (Updated 08/16/19 @ 20:27 by Bailee Macias NP) Social History: The patient resides at [facility] and is . When I asked a number of children she motion that she had no children. She never smoked. Her paperwork from the half-way states that she is a DNR. Smoking status: Never smoker Gender identity (if verbalized by the patient): Female Spiritual care concerns: No Exam Narrative: Exam Narrative: GENERAL: bed bound, well-nourished, and in no acute distress. HEAD: Normocephalic, atraumatic. EYES: Eyes continuously roll. Patient opens eyes to voice. CHEST: Clear to auscultation. No respiratory distress. No wheezes rales or rhonchi HEART: Regular rate and rhythm. No murmur heard. Normal peripheral pulses. ABDOMEN: Soft, nondistended, normal active bowel sounds, lots of strong urine in adult diaper. EXTREMITIES: muscles of upper and lower extremities are obviously chronically atrophied. No edema. SKIN: Warm, dry, no rash. 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 Patient non verbal. PSYCH: Normal mood and affect. Course Vital Signs Vital signs: Vital Signs Temperature 97.9 F 04/27/20 09:55 Pulse Rate 97 04/27/20 09:55 Respiratory Rate 14
--- NOTE | 2020-04-27 14:54 | PC.NURSE ---
On 04/27/20, the student, [GHANSHYAM ], provided care and completed [facility] documentation on this patient. I have reviewed the student's documentation and agree with the findings.
--- NOTE | 2020-04-27 15:14 | ADMGEN ---
This patient, Kyra Bedoya, was admitted to Medical Room 245-. Patient/family oriented to hospital policies and general routines including ID bracelet, bed and alarms, visiting hours, pain management, procedures, bathroom and other care routines, personal items, smoking policy, room service/diet, and visiting hours. Information on how to activate the Rapid Response Team has been discussed. Patient/Family are encouraged to report perceived risks to care and to ask questions if they do not understand what they are told or what they should do.
--- NOTE | 2020-04-27 17:43 | PM.IMHP ---
H&P: HPI History of Present Illness Date/Time: 04/27/20 17:43 Chief Complaint: Altered mental status Narrative: Kyra Bedoya is a 75 year old female she was brought to the emergency room because she was not able to speak with the prison staff at [facility]. The patient has been taking Benadryl for severe itching. The patient normally not yes and no to responses but has not been able to respond today. She is also on Lasix. The patient appears to be very dry. Her oral mucous membranes are dry. She has had a past history of having a CVA. Renal functions normal. The patient was found to have UTI. Head CT was read as no acute intracranial findings. Old infarctions. Atrophy and microangiopathy. Chest x-ray was read by radiology as mild atelectasis in left lower lung zone. Cardiomegaly. The patient was started on Rocephin. The patient is being admitted for observation on date of service 04/27/2020 Review of Systems Review of Systems: ROS unobtainable: Yes unobtainable due to mental status Constitutional: Constitutional: Reports as per HPI and Reports no additional constitutional complaints Eyes: Eyes: Reports as per HPI and Reports no additional eye complaints ENT: Reports system reviewed and no additional complaints, except as documented and Reports Normal hearing present Cardiovascular: Cardiovascular: Reports no additional cardiovascular complaints Respiratory: Respiratory: Reports no additional respiratory complaints and Reports no additional respiratory complaints Gastrointestinal: Gastrointestinal: Reports as per HPI and Reports no additional gastrointestinal complaints Musculoskeletal: Musculoskeletal: Reports no additional musculoskeletal complaints Integumentary/Breasts: Skin/Breast: Reports system reviewed and no additional complaints, except as docu and Reports as per HPI Neurologic: Reports system reviewed and no additional complaints, except as documented, Reports as per HPI and Reports Normal hearing present Psychiatric: Psychiatric: Reports no additional psychiatric complaints and Reports as per HPI Endocrine: Endocrine: Reports no additional endocrine complaints Hematologic/Lymphatic: Hematologic/Lymphatic: Reports no additional hematologic/lymphatic complaints Allergic/Immunologic: Allergic/Immunologic: Reports no additional allergic/immunologic complaints [facility] Past Medical History Medical History (Updated 04/27/20 @ 18:10 by Bailee Macias NP) Anxiety CAD (coronary artery disease) CVA (cerebral vascular accident) History of this leaving her aphasic Hyperlipidemia Hypertension Neoplasm of ovary Neuropathy Peripheral neuropathy Surgical History Surgical History (Updated 04/27/20 @ 18:00 by Bailee Macias NP) H/O abdominal surgery she has a scar to her abdomen Surgical history unknown Family History Family History Unknown Family history unknown Patient has aphasia and was not able to communicate family history Other Unknown family medical history Social History Social History (Updated 08/16/19 @ 20:27 by Bailee Macias NP) Social History: The patient resides at [facility] and is . When I asked a number of children she motion that she had no children. She never smoked. Her paperwork from the prison states that she is a DNR. Smoking status: Never smoker Gender identity (if verbalized by the patient): Female Spiritual care concerns: No Meds Home Medications and Allergies Home Medications Medication Instructions Recorded Confirmed Type acetaminophen 650 mg PO Q4H PRN 04/27/20 04/27/20 History diphenhydramine HCl 25 mg PO TID 04/27/20 04/27/20 History fenofibrate nanocrystallized 145 mg PO DAILY 04/27/20 04/27/20 History fluticasone propionate 2 spray INTRANASAL DAILY 04/27/20 04/27/20 History furosemide [Lasix] 40 mg PO BID 04/27/20 0
[2020-04-27 18:20] LABS: Hemoglobin A1C 7.3 % (<5.7)
[2020-04-27] MEDS: METOPROLOL TARTRATE INJ 5 MG/5 ML VIAL IV PUSH ×2 (18:43→23:52)
[2020-04-27] MEDS: SODIUM CHLORIDE 0.9% IV 1,000 ML 100 ML IV CONT (18:43)
[2020-04-27] MEDS: methylPREDNISolone SOD SUCC 40 MG VIAL IV PUSH (18:58)
[2020-04-27 19:03] LABS: Glucose Point of Care 140 (65-105)
[2020-04-27 21:18] LABS: Glucose Point of Care 160 (65-105)
[2020-04-27] MEDS: PERMETHRIN 5% CREAM 60 GM TUBE 1 APPLIC TOPICAL (21:45)
[2020-04-28] VITALS (7 sets, daily range): BP systolic 129–158; BP diastolic 42–57; PULSE 85–102; RESP 16–18; TEMP 36–36.5; O2SAT 94–100; BMI 28.4
[2020-04-28] MEDS: methylPREDNISolone SOD SUCC 40 MG VIAL IV PUSH ×2 (02:40→11:06)
[2020-04-28 04:52] LABS: Basophils Percent Auto 0.3 % (0.2-1.2); Hematocrit 35.7 % (37.0-47.0); Hemoglobin 11.7 g/dL (12.0-15.0); Immature Granulocyte Absolute 0.05 K/mm3 (0.00-0.031); Immature Granulocyte Percent A 0.6 % (0-0.5); Lymphocytes Absolute Auto 0.59 K/mm3 (0.9-3.2); Lymphocytes Percent Auto 7.5 % (18.3-44.2); Mean Corpuscular HGB Conc 32.8 g/dl (32-36); Mean Corpuscular Hemoglobin 29.6 pg (26-34); Mean Corpuscular Volume 90.4 fl (80-100); Monocytes Absolute Auto 0.1 K/mm3 (0.1-0.6); Monocytes Percent Auto 0.6 % (2.6-8.5); Neutrophils Absolute Auto 7.2 K/mm3 (1.3-6.7); Platelet Count Result 211 k/mm3 (150-375); Red Blood Count 3.95 M/mm3 (4.2-5.4); Red Cell Distribution Width 14.7 % (11.5-14.5); White Blood Count 7.9 K/mm3 (4.5-10.0)
[2020-04-28] MEDS: SODIUM CHLORIDE 0.9% IV 1,000 ML 100 ML IV CONT (04:55)
[2020-04-28 05:16] LABS: Alanine Aminotransferase 9 U/L (4-35); Albumin Level 3.5 g/dL (3.5-5.1); Alkaline Phosphatase 71 U/L (38-126); Anion Gap 7 mmol/L (8-16); Aspartate Amino Transferase 28 U/L (14-36); Bilirubin,Total 0.6 mg/dL (0.2-1.3); Blood Urea Nitrogen 22 mg/dL (7-17); CRP 4.3 mg/dL (<1.0); Calcium 9.3 mg/dL (8.4-10.2); Carbon Dioxide 27 mmol/L (22-30); Chloride 107 mmol/L (98-107); Estimated CRCL calculation 57 ml/min; Estimated Glomerular Filt Rate > 60; Glucose 234 mg/dL (65-105); Magnesium 1.9 mg/dL (1.6-2.3); Potassium 3.6 mmol/L (3.4-5.0); Sodium 141 mmol/L (137-145)
[2020-04-28 06:08] LABS: Thyroid Stimulating Hormone Reflex 0.479 uIU/mL (0.465-4.68)
[2020-04-28] MEDS: METOPROLOL TARTRATE INJ 5 MG/5 ML VIAL IV PUSH ×3 (06:12→18:47)
[2020-04-28 07:57] LABS: Glucose Point of Care 222 (65-105)
[2020-04-28] MEDS: FUROSEMIDE INJ 40 MG/4 ML VIAL IV PUSH (08:14)
[2020-04-28] MEDS: INSULIN ASPART (*BKC) 100 UNITS/ML SUB-Q (08:14)
[2020-04-28 08:20] LABS: NT Pro B Type Natriuretic Pept 3320 PG/ML (5-100)
[2020-04-28 11:51] LABS: Glucose Point of Care 196 (65-105)
--- NOTE | 2020-04-28 14:05 | PM.IMPN ---
Progress Note: A&P Assessment and Plan (1) UTI (urinary tract infection): Code(s): N39.0 - Urinary tract infection, site not specified Status: Acute Assessment and Plan: Urinalysis grossly abnormal upon presentation. Could explain her altered mental status. she is afebrile and without leukocytosis. Unable to indicate if she is having urinary symptoms. She is incontinent. Continue IV Rocephin, started 04/27/2020 urine cultures pending. Await results and tailor antibiotics accordingly. Blood cultures pending (2) Altered mental status: Qualifiers: Altered mental status type: transient alteration of awareness Qualified Code(s): R40.4 - Transient alteration of awareness Code(s): R41.82 - Altered mental status, unspecified Status: Acute Assessment and Plan: NH staff noted patient was less responsive than baseline, though she is nonverbal at baseline. Reported she was unable to nod yes or no like usual. May be secondary to suspected UTI as above. Patient also noted to have decreased PO intake so likely dehydrated. She has since been adequately rehydrated with IV fluids and electrolytes are stable. Head CT on admission negative for any acute findings with evidence of old infarcts. continue IV antibiotics as above for acute infection hold home medications that may cause confusion or drowsiness including morphine, Benadryl, hydroxyzine check TSH, B12, folate. Currently unable to tolerate PO intake. Hold PO medications. Hopefully will improve with IV antibiotics and improvement in overall mental status. Consider bedside swallow study if mental status improves. Current diet is minced and moist. (3) Hypertension: Code(s): I10 - Essential (primary) hypertension Status: Chronic Assessment and Plan: Blood pressure evaluated and is labile. Most recent BP 129/42. Continue IV metoprolol tartrate 5 mg q6h. Still unable to tolerate PO medications at this time. continue Lasix monitor BP daily (4) Diabetes mellitus: Code(s): E11.9 - Type 2 diabetes mellitus without complications Status: Acute Assessment and Plan: Noted to have elevated random glucose level, therefore A1c evaluated and found to be elevated at 7.3. Unclear if this is a new diagnosis for her, however she is not on insulin or hypoglycemic agents. Continue Accu-Cheks ACHS, SSI, hypoglycemic protocol Will plan to initiate her on metformin at time of discharge. (5) Elevated brain natriuretic peptide (BNP) level: Code(s): R79.89 - Other specified abnormal findings of blood chemistry Status: Acute Assessment and Plan: There was concern for history of CHF given findings of cardiomegaly and review of home medications including lasix and metoprolol. She does not appear to be in acute CHF exacerbation. CXR does not demonstrate signs of pulmonary edema. BNP found to be elevated at 3000. No prior echo available for review. Urine output is good. Continue with cautious diuresis. Transition to 20 mg IV Lasix for tomorrow as she is unable to tolerate PO. Monitor clinically. May benefit from outpatient echocardiogram. Heart healthy diet once tolerating PO intake. Additional Plan Noted to have numerous excoriations, felt to be related to scratching. Evaluated by wound care. No further intervention required. Discontinue permethrin cream and topical benadryl. Apply daily moisturizer. Subjective Date/time seen: 04/28/20 14:05 Interval history: date of service: 04/28/2020 Kyra Bedoya is a 75-year-old female with a history of CAD, CVA, hypertension, hyperlipidemia who is seen in follow-up for altered mental status and suspected UTI. She is nonverbal. She appears to be resting comfortably. She does not respond to any questions or follow any commands. Per nursing staff, this is consistent with her baseline. She did not eat any breakfast
--- NOTE | 2020-04-28 14:37 | PC.NURSE ---
On 04/28/20, the student, [Mitzy Pemberton ], provided care and completed [facility] documentation on this patient. I have reviewed the student's documentation and agree with the findings.
[2020-04-28 17:57] LABS: Glucose Point of Care 188 (65-105)
[2020-04-28] MEDS: EUCERIN CREAM 120 GM JAR 1 APPLIC TOPICAL (18:47)
[2020-04-28 21:38] LABS: Glucose Point of Care 191 (65-105)
[2020-04-29] VITALS (17 sets, daily range): BP systolic 139–152; BP diastolic 54–85; PULSE 70–171; RESP 18–20; TEMP 35.9–36.3; O2SAT 92–96
[2020-04-29] MEDS: METOPROLOL TARTRATE INJ 5 MG/5 ML VIAL IV PUSH ×5 (00:34→23:08)
[2020-04-29 06:13] LABS: Hematocrit 35.5 % (37.0-47.0); Hemoglobin 11.4 g/dL (12.0-15.0); Mean Corpuscular HGB Conc 32.1 g/dl (32-36); Mean Corpuscular Volume 93.4 fl (80-100); Mean Platelet Volume 10.3 fl (7.4-10.4); Platelet Count Result 229 k/mm3 (150-375); Red Cell Distribution Width 15.1 % (11.5-14.5); White Blood Count 12.7 K/mm3 (4.5-10.0)
[2020-04-29 07:43] LABS: Anion Gap 6 mmol/L (8-16); Blood Urea Nitrogen 25 mg/dL (7-17); Calcium 9.2 mg/dL (8.4-10.2); Carbon Dioxide 29 mmol/L (22-30); Chloride 110 mmol/L (98-107); Estimated CRCL calculation 50 ml/min; Estimated Glomerular Filt Rate > 60; Glucose 147 mg/dL (65-105); Sodium 145 mmol/L (137-145)
[2020-04-29] MEDS: EUCERIN CREAM 120 GM JAR 1 APPLIC TOPICAL (08:08)
[2020-04-29] MEDS: FUROSEMIDE INJ 40 MG/4 ML VIAL 20 MG IV PUSH (08:08)
[2020-04-29 08:13] LABS: Glucose Point of Care 143 (65-105)
--- NOTE | 2020-04-29 09:03 | PM.IMPN ---
Progress Note: A&P Assessment and Plan (1) UTI (urinary tract infection): Code(s): N39.0 - Urinary tract infection, site not specified Status: Acute Assessment and Plan: Suspected. Urinalysis grossly abnormal upon presentation. This could explain her mental status changes. She remains afebrile. Slight increase in leukocytosis. Unable to indicate if she is having urinary symptoms. She is incontinent. Continue IV Rocephin, started 04/27/2020 Resume gentle IV fluids as patient is not drinking. Urine culture not performed due to likely contamination. Will repeat urine culture with the understanding that patient has received 2 doses of antibiotics prior to collection which may affect results. Will plan to continue with antibiotic therapy for at least 7 days even if repeat culture is negative based on clinical findings. Preliminary blood cultures show NGTD (2) Altered mental status: Qualifiers: Altered mental status type: transient alteration of awareness Qualified Code(s): R40.4 - Transient alteration of awareness Code(s): R41.82 - Altered mental status, unspecified Status: Acute Assessment and Plan: At baseline, patient is nonverbal but will feed herself and interact by nodding yes or no. Patient found by any staff to be unresponsive. May be secondary to suspected UTI as above. Patient also noted to have decreased PO intake so likely dehydrated. She has since been adequately rehydrated with IV fluids and electrolytes are stable. Head CT on admission negative for any acute findings with evidence of old infarcts. She remains minimally responsive only to from physical stimuli. She is unable to tolerate p.o. intake. TSH, B12, folate within normal limits continue IV antibiotics as above for acute infection hold home medications that may cause confusion or drowsiness including morphine, Benadryl, hydroxyzine check ammonia Hold PO medications as patient is not able to tolerate oral intake at this time due to decreased responsiveness. Hopefully mental status will improve with IV antibiotics. Consider bedside swallow study if mental status improves. Current diet is minced and moist. (3) Hypertension: Code(s): I10 - Essential (primary) hypertension Status: Chronic Assessment and Plan: Blood pressure evaluated and is labile. Most recent BP 140/55. Continue IV metoprolol tartrate 5 mg q6h. Still unable to tolerate PO medications at this time. continue IV Lasix monitor BP daily (4) Diabetes mellitus: Code(s): E11.9 - Type 2 diabetes mellitus without complications Status: Acute Assessment and Plan: Noted to have elevated random glucose level, therefore A1c evaluated and found to be elevated at 7.3. Unclear if this is a new diagnosis for her, however she is not on insulin or hypoglycemic agents. Blood sugars fairly well controlled at this time. Continue Accu-Cheks ACHS, SSI, hypoglycemic protocol Will plan to initiate her on metformin at time of discharge. (5) Elevated brain natriuretic peptide (BNP) level: Code(s): R79.89 - Other specified abnormal findings of blood chemistry Status: Acute Assessment and Plan: There was concern for history of CHF given findings of cardiomegaly and review of home medications including lasix and metoprolol. She does not appear to be in acute CHF exacerbation. CXR does not demonstrate signs of pulmonary edema. BNP found to be elevated at 3000. No prior echo available for review. Urine output is good. She does have 1+ pedal edema of LLE today. Continue diuresis with IV Lasix 20 mg daily. She does require gentle IV fluids given her lack of p.o. intake. Will monitor volume status closely and adjust as needed. Monitor clinically. May benefit from outpatient echocardiogram. Heart healthy diet once tolerating PO intake. Weight patient daily Subjective Da
[2020-04-29 09:17] LABS: Folic Acid 8.4 ng/mL (2.76->20)
[2020-04-29 09:53] LABS: Ammonia < 9 umol/L (9-30)
[2020-04-29] MEDS: SODIUM CHLORIDE 0.9% IV 1,000 ML 70 ML IV CONT (11:07)
[2020-04-29 11:57] LABS: Glucose Point of Care 161 (65-105)
--- NOTE | 2020-04-29 12:15 | ECG_ITS ---
Measurements Intervals [place] Rate: 144 P: ID: 0 QRS: 56 QRSD: 86 T: 99 QT: 290 QTc: 450 Interpretive Statements ATRIAL FLUTTER/TACHYCARDIA WITH RAPID VENTRICULAR RESPONSE DELAYED PRECORDIAL R/S TRANSITION NONSPECIFIC ST & T-WAVE ABNORMALITY- HIGH LATERAL LEADS ABNORMAL ECG Electronically Signed On 04-29-2020 12:53:27 [employer] by Eliu Lockhart D.O.
[2020-04-29 13:10] LABS: Lactic Acid Reflex 1.4 mmol/L (0.7-2.1)
--- NOTE | 2020-04-29 15:43 | PM.CNCAR ---
Assessment and Plan Assessment and plan (1) Atrial flutter with rapid ventricular response: Code(s): I48.92 - Unspecified atrial flutter Status: Acute Assessment and Plan: Atrial flutter with rapid ventricular response approximately 150 beats per minute. Reverted to sinus rhythm with IV metoprolol in maintaining sinus tachycardia at present. Continue IV metoprolol 5 mg q.6 hours patient unable to take p.o.. Patient does not appear to be a good candidate for ongoing anticoagulation. Comfort care appropriate given patient's current clinical status and history. Further determination for anticoagulation depending on ultimate plan of care. DVT prophylaxis. TSH stable. (2) Altered mental status: Qualifiers: Altered mental status type: transient alteration of awareness Qualified Code(s): R40.4 - Transient alteration of awareness Code(s): R41.82 - Altered mental status, unspecified Status: Acute Assessment and Plan: Per primary service. Combination of baseline with acute exacerbation related to urinary tract infection. Continue IV antibiotics. (3) CVA (cerebral vascular accident): Code(s): I63.9 - Cerebral infarction, unspecified Status: Acute Assessment and Plan: Radiographic evidence of prior stroke without acute issue. She was not maintained on systemic anticoagulation outpatient. No documented history of atrial fibrillation and/or atrial flutter. (4) UTI (urinary tract infection): Code(s): N39.0 - Urinary tract infection, site not specified Status: Acute Assessment and Plan: Per primary service. IV antibiotics. (5) Hypokalemia: Code(s): E87.6 - Hypokalemia Status: Acute Assessment and Plan: Replete potassium to keep closer to 4. Check magnesium. Electrolyte abnormalities will contribute to arrhythmia recurrence. History of Present Illness History of Present Illness Consult date/time: Date of service: 04/29/20 15:43 This is a cardiology consultation at the request of TARA Mcqueen of the [facility] for my opinion regarding atrial flutter with rapid ventricular response. Requesting physician: Kathy Aguilar PA-C Consult reason: Other (Atrial flutter with rapid ventricular response) Reason For Visit: altered mental with uti Narrative: Patient is a 75-year-old female brought to the emergency department from [facility] essentially unresponsive. She is apparently aphasic at baseline from a prior stroke. Clinically she appeared to be dehydrated at presentation and found to have urinary tract infection for which she was started on intravenous ceftriaxone. Patient remains unresponsive essentially with CT head showing old infarctions without acute intracranial process. Patient was in sinus rhythm at presentation but developed atrial flutter with rapid ventricular response heart rate 140-150 beats per minute reverted back to sinus tachycardia with IV metoprolol as she had not been taking oral metoprolol 100 mg twice daily as she does as an outpatient. Patient is unable to provide any history as she is unresponsive and there is no family available for further corroboration. She is receiving IV fluids and potassium supplementation in addition to antibiotics. She has been stable hemodynamically thus far without hypotension. Review of Systems Review of Systems: All systems reviewed & are unremarkable except as noted in HPI and below ROS unobtainable: Yes unobtainable due to mental status and other (Patient is nonverbal, minimally responsive to physical stimuli) Constitutional: Constitutional: Reports as per HPI and Reports no additional constitutional complaints Eyes: Eyes: Reports as per HPI and Reports no additional eye complaints ENT: Reports system reviewed and no additional complaints, except as documented and Reports as per HPI Cardiovascular: Cardiovascular: Reports as
[2020-04-29 16:35] LABS: Potassium 3.5 mmol/L (3.4-5.0)
[2020-04-29 22:22] LABS: Glucose Point of Care 150 (65-105)
[2020-04-29 23:21] LABS: Magnesium 1.8 mg/dL (1.6-2.3); Potassium 3.4 mmol/L (3.4-5.0)
[2020-04-30] VITALS: PULSE 80
[2020-04-30 00:44] LABS: Glucose Point of Care 171 (65-105)
[2020-04-30] MEDS: SODIUM CHLORIDE 0.9% IV 1,000 ML 70 ML IV CONT ×2 (01:39→15:53)
[2020-04-30 04:00] VITALS: PULSE 75
[2020-04-30 05:25] VITALS: PULSE 70
[2020-04-30] MEDS: METOPROLOL TARTRATE INJ 5 MG/5 ML VIAL IV PUSH ×3 (05:25→16:57)
[2020-04-30 05:40] LABS: Hematocrit 34.7 % (37.0-47.0); Mean Corpuscular HGB Conc 31.7 g/dl (32-36); Mean Corpuscular Hemoglobin 29.6 pg (26-34); Mean Corpuscular Volume 93.3 fl (80-100); Mean Platelet Volume 10.2 fl (7.4-10.4); Platelet Count Result 206 k/mm3 (150-375); Red Blood Count 3.72 M/mm3 (4.2-5.4); White Blood Count 9.8 K/mm3 (4.5-10.0)
[2020-04-30 06:00] VITALS: BP 130/61; PULSE 75; RESP 18; TEMP 36.1; O2SAT 97
[2020-04-30 06:00] LABS: Anion Gap 5 mmol/L (8-16); Blood Urea Nitrogen 24 mg/dL (7-17); Calcium 8.7 mg/dL (8.4-10.2); Carbon Dioxide 26 mmol/L (22-30); Chloride 114 mmol/L (98-107); Estimated CRCL calculation 50 ml/min; Estimated Glomerular Filt Rate > 60; Glucose 135 mg/dL (65-105); Potassium 3.4 mmol/L (3.4-5.0); Sodium 145 mmol/L (137-145)
[2020-04-30 08:00] VITALS: PULSE 78
[2020-04-30] MEDS: EUCERIN CREAM 120 GM JAR 1 APPLIC TOPICAL (08:10)
--- NOTE | 2020-04-30 09:50 | PM.IMPN ---
Progress Note: A&P Assessment and Plan (1) Decreased responsiveness: Code(s): R41.89 - Other symptoms and signs involving cognitive functions and awareness Status: Acute Assessment and Plan: At baseline, patient is nonverbal but will feed herself and interact by nodding yes or no. Patient found by NH staff to be unresponsive. Initially considered to be secondary to suspected UTI, however she has not demonstrated improvement following 4 days of IV antibiotics and IV fluid rehydration. She is not eating or drinking. Head CT on admission negative for any acute findings with evidence of old infarcts. TSH, B12, folate, and ammonia within normal limits. She remains minimally responsive only to frirm physical stimuli. I discussed with her POA who reports that patient was on hospice ([facility]) for 1.5 years which was revoked in January 2020 as she did not have further decline. Based on her poor responsiveness an overall quality of life, patient's POA has requested re-evaluation from [facility] hospice. Hospice referral has been placed to [facility] for evaluation. P.o. medications are still being held as patient is not able to tolerate oral intake Continue gentle IV fluids, IV antibiotics, and monitor electrolytes. (2) UTI (urinary tract infection): Code(s): N39.0 - Urinary tract infection, site not specified Status: Acute Assessment and Plan: Suspected. Urinalysis grossly abnormal upon presentation. She remains afebrile and leukocytosis has resolved. She is incontinent. Continue IV Rocephin, started 04/27/2020 Continue gentle IV fluids as patient is not drinking. Initial urine culture not performed due to likely contamination (04/27/20). Repeat urine culture collected 04/29 with the understanding that patient has received 2 doses of antibiotics prior to collection which may affect results. Culture is pending. Will plan to continue with antibiotic therapy for at least 7 days even if repeat culture is negative based on clinical findings. Preliminary blood cultures show NGTD (3) Atrial flutter with rapid ventricular response: Code(s): I48.92 - Unspecified atrial flutter Status: Acute Assessment and Plan: Yesterday afternoon, patient had an episode where she became diaphoretic and heart rate increased up to 170s. EKG demonstrated atrial flutter. Sinus rhythm was restored with IV metoprolol. Heart rate is well controlled today in the 70s. Additional vital signs stable. Appreciate cardiology input in light of new onset atrial flutter Continue IV metoprolol q.6h At this time, not a candidate for anticoagulation. Will further consider based on hospice evaluation. Continue to monitor on telemetry. (4) Hypertension: Code(s): I10 - Essential (primary) hypertension Status: Chronic Assessment and Plan: Blood pressure evaluated and is labile. Most recent BP 130/61. Continue IV metoprolol tartrate 5 mg q6h. Still unable to tolerate PO medications at this time. continue IV Lasix monitor BP daily (5) Diabetes mellitus: Code(s): E11.9 - Type 2 diabetes mellitus without complications Status: Acute Assessment and Plan: Noted to have elevated random glucose level, therefore A1c evaluated and found to be elevated at 7.3. Unclear if this is a new diagnosis for her, however she is not on insulin or hypoglycemic agents. Blood sugars fairly well controlled at this time. Continue Accu-Cheks ACHS, SSI, hypoglycemic protocol (6) Elevated brain natriuretic peptide (BNP) level: Code(s): R79.89 - Other specified abnormal findings of blood chemistry Status: Acute Assessment and Plan: There was concern for history of CHF given findings of cardiomegaly and review of home medications including lasix and metoprolol. She does not appear to be in acute CHF exacerbation. CXR does not demonstrate signs of pulmonary edema. BNP found to
[2020-04-30 11:25] LABS: Glucose Point of Care 135 (65-105)
--- NOTE | 2020-04-30 13:49 | PCDIET ---
Nutrition Follow-Up Complete: Increased protein needs as related to wounds as evidenced by unstageable pressure ulcer noted. Adequate Intake of at least 75% of meals/supplements. Goal: Goal not met. Continue goal. Pt current nutrition is Minced and moist with Glucerna BID Nutrition recommendation: agree Last recorded weight is 71.5 kg, up from 70.5kg Bowel Motility: Labs Reviewed:5 anion gap, BUN 24, Glucose 135, Hgb 1..0, Hct 34.4 Meds Noted: normal saline Additional Notes: Pt family meeting with hospice today with potential d/c to hospice. Pt currently refusing meals. If family wishes for aggressive nutrition care, recommend enteral nutrition via NG tube. Recommend Glucerna 1.2 at 10ml/hr, advancing q 4 hrs to goal of 65ml/hr to provide 1716kcals. We will continue to monitor for adequate intake every 3 days.
[2020-04-30 14:00] VITALS: BP 137/69; PULSE 53; RESP 16; TEMP 36.7; O2SAT 97
[2020-04-30 17:33] LABS: Glucose Point of Care 166 (65-105)
[2020-04-30 18:11] LABS: SARS-CoV-2 RNA PCR Negative
--- NOTE | 2020-04-30 19:29 | PC.NURSE ---
Called [facility] and spoke with Karlee NOYOLA. Report given with no questions or complaints at this time.
--- NOTE | 2020-04-30 20:23 | PC.NURSE ---
[facility]. Notified [facility] hospice as well.
--- NOTE | 2020-05-01 06:55 | PM.DS ---
DS: Admitting Diagnosis Admitting Diagnosis Admitting Diagnosis: Unresponsiveness DS: Discharge Diagnosis Discharge Diagnosis (1) Decreased responsiveness: Code(s): R41.89 - Other symptoms and signs involving cognitive functions and awareness Status: Acute Assessment and Plan: At baseline, patient is nonverbal but will typically feed herself and interact by nodding yes or no. Patient found by [facility] staff to be unresponsive. Initially considered to be secondary to suspected UTI, however she did not demonstrate improvement following 4 days of IV antibiotics and IV fluid rehydration. She remained poorly responsive and did not eat, drink, or take PO medications. Head CT on admission negative for any acute findings with evidence of old infarcts. TSH, B12, folate, and ammonia within normal limits. She remains minimally responsive only to frirm physical stimuli. I spoke with her POA on 04/30/20 who reports that patient was on hospice ([facility]) for 1.5 years which was revoked in January 2020 as she did not have further decline. Based on her poor responsiveness and overall quality of life, patient's POA requested re-evaluation from [facility]. Family opted to proceed with hospice care and patient was transferred to [facility] with [facility]. (2) UTI (urinary tract infection): Code(s): N39.0 - Urinary tract infection, site not specified Status: Acute Assessment and Plan: Urinalysis grossly abnormal upon presentation. She remained afebrile and leukocytosis resolved. She is incontinent and unable to indicate urinary symptoms. She was started on IV Rocephin on 04/27/20 and completed 4 days of antibiotic therapy. She was rehydrated with IV fluids. Initial urine culture not performed due to likely contamination (04/27/20). Repeat urine culture collected 04/29 which grew gram negative bacilli. Final culture is still pending and I will monitor results. I will contact Hospice team with results and at that time, decision can be made about whether or not to continue antibiotic therapy. Antibiotics were held upon discharge at recommendation of hospice team. Preliminary blood cultures show NGTD and final cultures will be monitored. (3) Atrial flutter with rapid ventricular response: Code(s): I48.92 - Unspecified atrial flutter Status: Acute Assessment and Plan: On 04/28, patient had an episode where she became diaphoretic and heart rate increased up to 170s. EKG demonstrated atrial flutter. Sinus rhythm was restored with IV metoprolol. Heart rate remained well controlled in the 70s following episode. Additional vital signs stable. She was seen in consultation by cardiology who recommended continuing IV metoprolol. Home metoprolol was held upon discharge per hospice recommendations as she was unable to tolerate PO intake. [place] to be a poor candidate for anticoagulation therapy per cardiology. (4) Hypertension: Code(s): I10 - Essential (primary) hypertension Status: Chronic Assessment and Plan: Blood pressures reviewed and were labile but remained stable. (5) Diabetes mellitus: Code(s): E11.9 - Type 2 diabetes mellitus without complications Status: Acute Assessment and Plan: Noted to have elevated random glucose level, therefore A1c evaluated and found to be elevated at 7.3. Unclear if this is a new diagnosis for her, however she is not on insulin or hypoglycemic agents. Blood sugars fairly well controlled at this time. She was started on sliding scale insulin but no hypoglycemic agents initiated upon discharge as she was doing Hospice. (6) Elevated brain natriuretic peptide (BNP) level: Code(s): R79.89 - Other specified abnormal findings of blood chemistry Status: Acute Assessment and Plan: There was concern for history of CHF given findings of cardiomegaly and review of home medications including lasix and metoprolol. Sh
== END 2020-04-30 20:20 | disposition hospice, home (50) | DRG 690 ==
LOC: ANHED 13:32 → ANH2MED 14:23
PROVIDERS: Nurse Practitioner; Physician Assistant; Admitting Provider Internal Medicine; Emergency Provider Emergency Medicine; Visit Provider Physician Assistant
DX: N39.0 Urinary tract infection, site not specified (principal); I48.92 Unspecified atrial flutter; Z20.822 Contact with and (suspected) exposure to COVID-19; R41.89 Other symptoms and signs involving cognitive functions and awareness; I10 Essential (primary) hypertension; E11.9 Type 2 diabetes mellitus without complications; R79.89 Other specified abnormal findings of blood chemistry; E87.6 Hypokalemia; R21 Rash and other nonspecific skin eruption; Z66 Do not resuscitate; I69.320 Aphasia following cerebral infarction; I25.10 Atherosclerotic heart disease of native coronary artery without angina pectoris; G62.9 Polyneuropathy, unspecified; E78.5 Hyperlipidemia, unspecified; F41.9 Anxiety disorder, unspecified; Z79.899 Other long term (current) drug therapy; Z86.03 Personal history of neoplasm of uncertain behavior
CPT/HCPCS: 36415; 70450; 71045; 80048; 80053; 81001; 82140; 82607; 82746; 82948; 83036; 83605; 83735; 83880; 84132; 84443; 84484; 85025; 85027; 85610; 85730; 86140; 87040; 87077; 87086; 87088; 87186; 93005; 96361; 96365; 96375; 96376; 99285; A9270; C9803; G0378; J0696; J1815; J1940; J2920; J3480; J7030; U0003; U0005